=== PATIENT | male | born 1965 | race African-American/Black ===

== ENCOUNTER 2019-01-05 11:40 | Day surgery (SDC) | payer OTHER ==
[~2019-01-05 11:40] MED LIST: ONDANSETRON 4 MG/2 ML VIAL IVPUSH PRN; oxyCODONE HCL 5 MG TABLET PO PRN
[2019-01-05 12:09] VITALS: BMI 29.0
[2019-01-05] MEDS ORDERED: MIDAZOLAM HCL 2 MG/2 ML SINGLE DOSE VIAL ONE (12:24)
--- NOTE | 2019-01-05 14:16 | OP ---
Operative Note - Note: Operative Date: 01/05/19 Pre-Operative Diagnosis: Left renal stone Operation: Left ESWL Findings: 5 mm lower pole left renal stone Post-Operative Diagnosis: Same as Pre-op Surgeon: Meño Pradhan Anesthesia: Fractional Estimated Blood Loss (mls): 0 Operative Report Dictated: Yes
[2019-01-05 15:05] VITALS: BP 132/89; PULSE 58; TEMP 97.5
--- NOTE | 2019-02-11 09:43 | OP ---
DATE OF OPERATION: 01/05/2019 PREOPERATIVE DIAGNOSIS: Left renal stone. POSTOPERATIVE DIAGNOSIS: Left renal stone. PROCEDURE: Left extracorporeal shock wave lithotripsy. ATTENDING: Juan Caro MD ANESTHESIA: Fractional. OPERATION: The patient was brought in the operating room, placed in the supine position on the operating room table. Ultrasonography and fluoroscopy were performed. A 5-mm left lower pole stone was identified. Anesthesia and preoperative antibiotics were then administered. Shock wave lithotripsy was then performed. Excellent fragmentation was noted under real time ultrasonography and fluoroscopy. No complications were noted. The patient tolerated the procedure very well. JUAN CARO M.D. [id number]
== END 2019-01-05 15:35 | disposition home or self-care (01) ==
LOC: JASU-SURG 11:40
PROVIDERS: ATTEND Urology
PROC: 0TF4XZZ Fragmentation in Left Kidney Pelvis, External Approach (ICD-10-PCS; principal; 2019-01-05 12:30)
DX: N20.0 Calculus of kidney (principal)